=== PATIENT | female | born 1955 | race Two or more races ===

== ENCOUNTER 2023-01-25 15:43 | Emergency (ER) | payer OTHER ==
[~2023-01-25] VITALS: Ht 157.5 cm; Wt 87.2 kg
[2023-01-25 16:22] VITALS: BP 168/89; PULSE 81; RESP 15; TEMP 97.3; O2SAT 93
[2023-01-25] MEDS ORDERED: CEPH500C PO (17:51)
[2023-01-25] MEDS ORDERED: PHEN-922 PO (17:51)
[2023-01-25 18:49] LABS: Urine Bacteria NONE SEEN /hpf (None Seen); Urine Blood 1+ /uL (Negative); Urine Clarity HAZY (Clear); Urine Color Yellow (Yellow); Urine Protein, UAD TRACE (Negative); Urine Specific Gravity 1.008 (1.001-1.035); Urine Urobilinogen Normal (Negative); Urine WBC 99 /hpf (0 - 5); Urine pH 7.5 (5.0-8.0)
== END 2023-01-25 17:57 | disposition home or self-care (01) ==
LOC: ER 15:43
DX: N39.0 Urinary tract infection, site not specified (principal); M54.2 Cervicalgia
CPT/HCPCS: 81001; 93005